=== PATIENT | female | born 2000 | race Caucasian/White ===

== ENCOUNTER 2018-11-15 18:22 | Emergency (ER) | payer OTHER ==
[2018-11-15 18:48] LABS: BILIRUBIN,URINE NEGATIVE (NEGATIVE); GLUCOSE, URINE (UA) NEGATIVE (NEGATIVE); KETONES,URINE (UA) 15 mg/dL (NEGATIVE); LEUKOCYTE ESTERASE, URINE NEGATIVE (NEGATIVE); NITRITE,URINE NEGATIVE (NEGATIVE); OCCULT BLOOD,URINE NEGATIVE (NEGATIVE); PROTEIN,URINE NEGATIVE (NEGATIVE); UROBILINOGEN,URINE 0.2 (NORMAL) E.U./dL (NORMAL)
[2018-11-15 18:52] LABS: CLARITY,URINE CLEAR (CLEAR); HCG UR QUAL NEGATIVE
[2018-11-15 19:11] LABS: BASOPHILS % (AUTO) 0.8 %; EOSINOPHILS % (AUTO) 1.5 %; HGB - HEMOGLOBIN 14.9 g/dL (12.0-16.0); LYMPHOCYTES % (AUTO) 40.6 %; MEAN CORPUSCULAR HEMOGLOBIN 31.8 pg (27.0-31.0); MEAN CORPUSCULAR HGB CONC 34.3 g/dL (32.0-36.0); MEAN CORPUSCULAR VOLUME 92.8 fL (81.0-99.0); NEUTROPHILS % (AUTO) 49.7 %; PLT - PLATELET COUNT 315 10^3/uL (130-450); RED BLOOD COUNT 4.69 10^6/uL (4.20-5.40); RED CELL DISTRIBUTION WIDTH 12.5 % (12.0-15.0); WHITE BLOOD COUNT 12.4 x10^3/uL (4.8-10.8)
[2018-11-15 19:17] LABS: ABNORMAL LYMPHS % (MANUAL) 0 %; BAND NEUTROPHILS % (MANUAL) 0 %
[2018-11-15 19:21] LABS: ALBUMIN 4.8 g/dL (3.2-5.5); ALBUMIN/GLOBULIN RATIO 1.4 (1.0-2.2); BILIRUBIN,TOTAL 0.8 mg/dL (0.2-1.0); CALCIUM 9.4 mg/dL (8.5-10.3); CREATININE 0.9 mg/dL (0.4-1.0); TOTAL PROTEIN 8.2 g/dL (6.7-8.2)
[2018-11-15 19:37] LABS: DIFFERENTIAL COMMENT MANUAL DIFFERENTIAL; EOSINOPHILS # (MANUAL) 0.1 10^3/uL (0-0.7); LYMPHOCYTES # (MANUAL) 5.5 10^3/uL (1.5-3.5); LYMPHOCYTES % (MANUAL) 44 %; MONOCYTES # (MANUAL) 0.9 10^3/uL (0.0-1.0); NEUTROPHILS % (MANUAL) 48 %; PLATELET ESTIMATE, MANUAL NORMAL (130-450,000) (NORMAL); PLATELET MORPHOLOGY NORMAL APPEARANCE (NORMAL); RBC MORPHOLOGY (MULTIPLE) NORMAL APPEARANCE (NORMAL)
--- NOTE | 2018-11-15 19:52 | ED Physician Documentation ---
PD HPI FEMALE - Stated complaint Stated Complaint: FEM - Chief complaint Chief Complaint: Abd Pain - History obtained from History obtained from: Patient - History of Present Illness Timing - onset: Today Timing - duration: Hours Timing - details: Abrupt onset Associated symptoms: Back pain (Just since sitting in the exam chair.), Dysuria, Urinary frequency, Hematuria (Saw blood when she wiped this morning). No: Fever, Abdominal pain, Vaginal bleeding, Vaginal discharge Contributing factors: control (Take Steppel), Depo. No: Similar symptoms before: Has not had sx before Recently seen: Not recently seen - Additional information Additional information: This is a 18-year-old woman who presents with her complains that she it was burning when she urinated this morning she is a little bit of blood when she wipes that she thinks she has a urinary tract infection. She is never had one previously. Denies fever or dizziness. She had no abdominal or back pain until she was sitting in the exam cot and now she is having some pain across her mid back. Patient denies stating she has been on a Depakote shot for the past 3 years the most recent one was about a week week ago when she has not had menses since she started the Depo-Provera. She did have an episode of vomiting earlier in the week. Patient was questioned about her rapid heart rate and she said that that had been something she had seen her doctor for previously and they had ordered some lab tests, EKG and urinalysis all of which were normal although she does not know what labs were done. She is been referred to a elastic cutter but has not seen them yet. She denies shortness of breath and has no history of DVT. Review of Systems Constitutional: denies: Fever, Chills Ears: denies: Drainage/discharge Nose: denies: Rhinorrhea / runny nose Throat: denies: Sore throat Cardiac: denies: Chest pain / pressure, Palpitations, Pedal edema Respiratory: denies: Dyspnea, Cough GI: denies: Abdominal Pain, Nausea, Vomiting, Diarrhea : reports: Dysuria, Frequency, Hematuria, Missed period, Control. denies: Now EGA Musculoskeletal: reports: Back pain Neurologic: denies: Generalized weakness, Focal weakness, Syncope Endocrine: reports: Other (Denies diabetes or thyroid disorder.) PD PAST MEDICAL HISTORY - Allergies Allergies/Adverse Reactions: Allergies Allergy/AdvReac Type Severity Reaction Status Date / Time No Known Drug Allergies Allergy Verified 11/15/18 18:30 PD ED PE NORMAL - Vitals Vital signs reviewed: Yes - General General: Alert and oriented X 3 - HEENT HEENT: Atraumatic, PERRL, Moist mucous membranes - Neck Neck: Supple, no meningeal sign, Other (Thyroid is mildly enlarged but there is no palpable nodules.) - Cardiac Cardiac: No murmur, No gallop, Strong equal pulses, Other (Tachycardia) - Respiratory Respiratory: No respiratory distress, Clear bilaterally - Abdomen Abdomen: Normal bowel sounds, Soft, Non tender - Female Female : Deferred - Back Back: No CVA TTP - Derm Derm: Normal color, Warm and dry - Extremities Extremities: No deformity, No edema - Neuro Neuro: Alert and oriented X 3, Normal speech - Psych Psych: Normal mood, Normal affect Results - Vitals Vitals: Vital Signs - 24 hr 11/15/18 11/15/18 11/15/18 18:27 19:38 20:23 Temperature 37.2 C 37.7 C H Heart Rate 130 H 131 H 123 H Respiratory 19 16 21 Rate Blood Pressure 152/105 H 160/103 H 137/93 H O2 Saturation 99 100 99 Oxygen O2 Source Room air - EKG (time done) 2001 Rate: Rate (enter#), Tachy Rhythm: Sinus tachycardia Intervals: Normal MI Ischemia: Non specific changes - Labs Labs: Laboratory Tests 11/15/18 11/15/18 11/15/18 18:38 19:04 19:04 WBC 12.4 H RBC 4.69 Hgb 14.9 Hct 43.5 MCV 92.8 MCH 31.8 H MCHC 34.3 RDW 12.5 Plt Count 315 MPV 9.0 Neut # (Auto) Not Reportable Lymph # (Auto) Not Reportable [place] # (Auto) Not Reportable Eos # (Auto) Not Reportable Baso # (Auto) Not Reportable Absolute Nucleated RBC Not Reportable Total Counted 100 Band Neuts % (Manual) 0 Abnorm Lymph % (Manual) 0 Nucleated RBC % Not Reportable Neutrophils # (Manual) 6.0 Lymphocytes # (Manual) 5.5 H Monocytes # (Manual) 0.9 Eosinophils # (Manual) 0.1 Basophils # (Manual) 0.0 Differential Comment MANUAL DIFFERENTIAL WBC Morphology NORMAL APPEARANCE Platelet Estimate NORMAL (130-450,000) Platelet Morphology NORMAL APPEARANCE RBC Morph Micro Appear NORMAL APPEARANCE Sodium 138 Potassium 3.4 L Chloride 102 Carbon Dioxide 22 Anion Gap 14.0 H BUN 17 Creatinine 0.9 Estimated GFR (MDRD) 80 L Glucose 87 Calcium 9.4 Total Bilirubin 0.8 AST 21 ALT 20 Alkaline Phosphatase 61 Total Protein 8.2 Albumin 4.8 Globulin 3.4 Albumin/Globulin Ratio 1.4 Lipase 32 TSH Urine Color YELLOW Urine Clarity CLEAR Urine pH 6.0 Ur Specific [place] 1.025 Urine Protein NEGATIVE Urine Glucose (UA) NEGATIVE Urine Ketones 15 H Urine Occult Blood NEGATIVE Urine Nitrite NEGATIVE Urine Bilirubin NEGATIVE Urine Urobilinogen 0.2 (NORMAL) Ur Leukocyte Esterase NEGATIVE Ur Microscopic Review NOT INDICATED Urine Culture Comments NOT INDICATED Urine HCG, Qual NEGATIVE 11/15/18 19:04 WBC RBC Hgb Hct MCV MCH MCHC RDW Plt Count MPV Neut # (Auto) Lymph # (Auto) [place] # (Auto) Eos # (Auto) Baso # (Auto) Absolute Nucleated RBC Total Counted Band Neuts % (Manual) Abnorm Lymph % (Manual) Nucleated RBC % Neutrophils # (Manual) Lymphocytes # (Manual) Monocytes # (Manual) Eosinophils # (Manual) Basophils # (Manual) Differential Comment WBC Morphology Platelet Estimate Platelet Morphology RBC Morph Micro Appear Sodium Potassium Chloride Carbon Dioxide Anion Gap BUN Creatinine Estimated GFR (MDRD) Glucose Calcium Total Bilirubin AST ALT Alkaline Phosphatase Total Protein Albumin Globulin Albumin/Globulin Ratio Lipase TSH 1.48 Urine Color Urine Clarity Urine pH Ur Specific [place] Urine Protein Urine Glucose (UA) Urine Ketones Urine Occult Blood Urine Nitrite Urine Bilirubin Urine Urobilinogen Ur Leukocyte Esterase Ur Microscopic Review Urine Culture Comments Urine HCG, Qual PD MEDICAL DECISION MAKING - ED course Complexity details: reviewed results, re-evaluated patient, d/w patient, d/w family ED course: Patient is not anemic. Chemistries are normal and her urinalysis is. TSH was normal. EKG just shows a tight sinus tachycardia. The patient did receive a liter of fluids and got up went to the bathroom here and said it was no longer burning. Possible weightbearing this morning because it is concentrated and her tried and that she does not drink enough water.She is Herb been referred to cardiology for follow-up on the resting tachycardia and I have encouraged her to keep that appointment. However she is moving in 2 weeks to [place] and so has not pursued an appointment locally. I encouraged her to call head so that she can get in to see someone where she is moving to more quickly than waiting until she gets there and trying to schedule an appointment. Departure - Departure Disposition: 01 Home, Self Care Clinical Impression: Dysuria, Tachycardia Condition: Good Instructions: ED Dehydration Follow-Up: Zulma Mcrae MD [Primary Care Provider] - Comments: Be sure to drink plenty of water. Follow-up with a elastic cutter as recommended by your primary care provider. You should be reevaluated if you experience shortness of breath, dizziness, chest pain or other problems arise.
[2018-11-15] MEDS ORDERED: SODIUM CHLORIDE 0.9% 1,000 ML IV ONE (20:24)
[2018-11-15 21:57] VITALS: BP 134/97
== END 2018-11-15 22:00 | disposition home or self-care (01) ==
LOC: ED 18:22
DX: R30.0 Dysuria (principal); R00.0 Tachycardia, unspecified
CPT/HCPCS: 36415; 80053; 81001; 81003; 81025; 83690; 84443; 85025; 87086; 93005; 96360; 99284